=== PATIENT | male | born 1965 | race Caucasian/White ===

== ENCOUNTER 2022-12-16 13:55 | Emergency (ER) | payer BC ==
[2022-12-16] MEDS ORDERED: Lidocaine 1% PF 5 ML VIAL ONE (14:10)
[2022-12-16] MEDS ORDERED: Boostrix 0.5 ML (Tdap) VIAL (>/=7 yrs of age) ONE (14:11)
== END 2022-12-16 15:05 | disposition home or self-care (01) ==
LOC: BURERS 13:55
DX: S61.211A Laceration without foreign body of left index finger without damage to nail, initial encounter (principal); I10 Essential (primary) hypertension; Z23 Encounter for immunization; W26.8XXA Contact with other sharp object(s), not elsewhere classified, initial encounter
CPT/HCPCS: 12001; 90471; 90715